=== PATIENT | female | born 1950 | race Caucasian/White ===

== ENCOUNTER → 2020-03-09 12:36 | Outpatient (CLI) | payer MEDICARE, OTHER, SELFPAY ==
--- NOTE | 2020-03-09 | DI.MRI.S_ITS ---
PROCEDURE: MR LUMBAR SPINE WO CON INDICATIONS: Low back pain Pain in left knee TECHNIQUE: Noncontrast sagittal T1 spin echo and T2 fast echo, sagittal STIR, axial T1 and T2 fast spin echo through the lumbar spine. In cases with scoliosis, additional coronal T2 fast spin echo may be performed. COMPARISON: None. FINDINGS: Image quality: Excellent. Alignment and Curvature: No plain films are available for comparison, for numbering purposes. Thus, for the purposes of this examination, 5 lumbar type vertebral bodies will be presumed, as denoted on the montage panel. This should be confirmed and correlated with plain films, prior to any lumbar spinal intervention. Mild grade 1 retrolisthesis of L3 on L4. Mild grade 1 anterolisthesis of L4 on L5. Bone Marrow: Marrow is of normal overall signal. No acute vertebral body compression fractures. Mild reactive signal within the endplates adjacent to the T10-T11, T11-T12, L2-L3, L3-L4, and L4-L5 intervertebral discs. Spinal Cord: Conus medullaris terminates at the L1-L2 disc space level. Visualized cord demonstrates normal signal and size. Paraspinous Soft Tissues: No paravertebral masses. L1-L2: Mild disc height loss and desiccation. Mild diffuse disc bulge. Mild bilateral facet and ligamentum flavum hypertrophy. Mild epidural lipomatosis. Mild canal stenosis. Mild bilateral foraminal stenosis. L2-L3: Mild disc height loss and desiccation. Mild diffuse disc bulge. Mild bilateral facet and ligamentum flavum hypertrophy. Mild epidural lipomatosis. Mild canal stenosis. Mild bilateral foraminal stenosis. L3-L4: Mild disc height loss and desiccation. Mild diffuse disc bulge. Mild bilateral facet and ligamentum flavum hypertrophy. Mild epidural lipomatosis. Mild canal stenosis. Mild bilateral foraminal stenosis. L4-L5: Moderate disc height loss and desiccation. Mild diffuse disc bulge. Mild bilateral facet and ligamentum flavum hypertrophy. Mild epidural lipomatosis. Moderate canal stenosis. Mild bilateral foraminal stenosis. L5-S1: Normal appearance. IMPRESSION: 1. Multilevel degenerative disc and facet disease, as well as ligamentum flavum hypertrophy and epidural lipomatosis. 2. Multilevel canal stenosis, worst at L4-L5, where there is moderate canal stenosis. 3. Mild multilevel foraminal stenosis. 4. 5 lumbar type vertebral bodies were presumed for the current report. Plain films of the lumbar spine are recommended for confirmation, prior to any lumbar spinal intervention. Dictated by: Nelida Montilla M.D. on 03/09/2020 at 14:18 Approved by: Nelida Montilla M.D. on 03/09/2020 at 14:20
--- NOTE | 2020-03-09 | DI.MRI.S_ITS ---
PROCEDURE: MR KNEE LT WO CON INDICATIONS: Low back pain Pain in left knee TECHNIQUE: Noncontrast sagittal PD fast spin echo and T2 fast spin echo with fat saturation, sagittal 3-D FLASH with fat saturation; coronal T1 spin echo and PD fast spin echo with fat saturation, and axial PD fast spin echo with fat saturation through the knee. COMPARISON: None. FINDINGS: Image quality: Excellent. Menisci: Linear oblique high T2 signal intensity traverses the medial meniscal body and posterior horn, demonstrating inferior articular surface extension. Medial extrusion of the medial meniscus. Radial tearing of the posterior horn medial meniscus at the meniscal root ligament insertion site. Amorphous high signal intensity within the anterior horn lateral meniscus is present, demonstrating superior articular surface extension. Linear oblique high T2 signal intensity traverses the lateral meniscal body, demonstrating inferior articular surface extension, indicating oblique tearing. Cruciate ligaments: The anterior and posterior cruciate ligaments appear intact. Medial structures: The medial collateral ligament appears intact. Visualized portions of the pes anserinus tendons appear normal. Small amount of medial bursal fluid. Lateral structures: The lateral collateral ligament, long and short heads of the biceps femoris tendon appear intact. The popliteus tendon appears normal. Iliotibial band appears normal. Anterior structures: The quadriceps and patellar tendons appear intact. Mild lateral patellar subluxation. No femoral trochlear dysplasia or ventral trochlear prominence. No edema in the infrapatellar fat pad. Bones and cartilage: No bone marrow contusions or fractures. Moderate ill-defined degenerative marrow edema within the weight-bearing aspects of the medial tibial plateau. Mild articular cartilage loss diffusely overlies the weight-bearing aspects of the medial and lateral compartments. Articular cartilage fibrillation overlies the lateral patellar facet. Joint space: There is a small knee joint effusion and a small Mcadams's cyst. Normal appearing synovial plicae are incidentally noted. IMPRESSION: 1. Tricompartmental osteoarthritis with associated articular cartilage loss. 2. Medial and lateral meniscal tearing as described above. 3. Knee joint effusion and Mcadams's cyst. 4. Medial bursitis. Dictated by: Nelida Montilla M.D. on 03/09/2020 at 14:13 Approved by: Nelida Montilla M.D. on 03/09/2020 at 14:15
== END ==
PROVIDERS: PCP Family Medicine; Referring Provider Internal Medicine Rheumatology; Visit Provider Internal Medicine Rheumatology
DX: M25.562 Pain in left knee (principal); M54.5 Low back pain; S83.242A Other tear of medial meniscus, current injury, left knee, initial encounter; S83.282A Other tear of lateral meniscus, current injury, left knee, initial encounter; M17.12 Unilateral primary osteoarthritis, left knee; M71.22 Synovial cyst of popliteal space [Baker], left knee; M71.562 Other bursitis, not elsewhere classified, left knee; M25.462 Effusion, left knee; M51.16 Intervertebral disc disorders with radiculopathy, lumbar region; M51.17 Intervertebral disc disorders with radiculopathy, lumbosacral region; M48.061 Spinal stenosis, lumbar region without neurogenic claudication; M48.07 Spinal stenosis, lumbosacral region
CPT/HCPCS: 72148; 73721

== ENCOUNTER → 2020-07-28 13:38 | Outpatient (CLI) | payer MEDICARE, OTHER, SELFPAY ==
--- NOTE | 2020-07-28 13:42 | DI.MG.S_ITS ---
BILATERAL DIGITAL SCREENING MAMMOGRAM 3D/2D WITH CAD: 07/28/2020 CLINICAL: Routine screening. Comparison is made to exams dated: 09/14/2017 mammogram and 10/14/2018 mammogram - [facility]. There are scattered fibroglandular elements in both breasts. Current study was also evaluated with a Computer Aided Detection (CAD) system. No significant masses, calcifications, or other findings are seen in either breast. There has been no significant interval change. IMPRESSION: NEGATIVE There is no mammographic evidence of malignancy. A 1 year screening mammogram is recommended. This exam was interpreted at Station ID: [id number]. NOTE: For mammograms, a report in lay terms will be sent to the patient. Approximately 15% of breast malignancies will not be visualized mammographically. In the management of a palpable breast mass, a negative mammogram must not discourage biopsy of a clinically suspicious lesion. Electronically Signed By: Baljit shah/zoraida:07/30/2020 08:44:40 letter sent: Normal Exam ACR BI-RADS Category 1: Negative 3341F
== END ==
PROVIDERS: PCP Family Medicine; Referring Provider Family Medicine; Visit Provider Family Medicine
DX: Z12.31 Encounter for screening mammogram for malignant neoplasm of breast (principal)
CPT/HCPCS: 77063; 77067

== ENCOUNTER → 2021-08-16 11:05 | Outpatient (CLI) | payer MEDICARE, OTHER, SELFPAY ==
--- NOTE | 2021-08-16 | DI.MG.S_ITS ---
BILATERAL DIGITAL SCREENING MAMMOGRAM 3D/2D WITH CAD: 08/16/2021 CLINICAL: Routine screening. Family history of breast cancer. Comparison is made to exams dated: 07/28/2020 mammogram - [facility], 10/14/2018 mammogram, and 09/14/2017 mammogram - [facility]. There are scattered fibroglandular elements in both breasts. Current study was also evaluated with a Computer Aided Detection (CAD) system. No significant masses, calcifications, or other findings are seen in either breast. There has been no significant interval change. IMPRESSION: NEGATIVE There is no mammographic evidence of malignancy. A 1 year screening mammogram is recommended. This exam was interpreted at Station ID: [id number]. NOTE: For mammograms, a report in lay terms will be sent to the patient. Approximately 15% of breast malignancies will not be visualized mammographically. In the management of a palpable breast mass, a negative mammogram must not discourage biopsy of a clinically suspicious lesion. Electronically Signed By: Abhishek lang/zoraida:08/16/2021 11:41:31 letter sent: Normal Exam ACR BI-RADS Category 1: Negative 3341F
== END ==
PROVIDERS: PCP Family Medicine; Referring Provider Family Medicine; Visit Provider Family Medicine
DX: Z12.31 Encounter for screening mammogram for malignant neoplasm of breast (principal); Z80.3 Family history of malignant neoplasm of breast
CPT/HCPCS: 77063; 77067

== ENCOUNTER → 2021-11-18 10:18 | Outpatient (CLI) | payer MEDICARE, OTHER, SELFPAY ==
[2021-11-18 13:10] LABS: COVID19 -Nasal RAPID Negative (Negative)
== END ==
PROVIDERS: PCP Family Medicine; Visit Provider Family Medicine Sleep Medicine
DX: Z20.822 Contact with and (suspected) exposure to COVID-19 (principal)
CPT/HCPCS: 87635; C9803

== ENCOUNTER 2021-11-20 08:26 | Day surgery (SDC) | payer MEDICARE, OTHER, SELFPAY ==
[2021-11-20] VITALS (7 sets, daily range): BP systolic 91–126; BP diastolic 57–79; PULSE 80–100; RESP 10–17; TEMP 36.6–36.8; O2SAT 95–100; BMI 35.9
--- NOTE | 2021-11-20 | PATH_ITS ---
[facility] Accession Number: [id number] . 01 Material submitted: . sigmoid colon - SIGMOID POLYP . 02 Diagnosis: Sigmoid Colon, Polyp, Biopsy: Tubular adenoma. MRV 11/25/2021 1249 Local . 02 Electronically signed: . Emma Aguiar MD, Pathologist NPI- [id number] . 01 Gross description: . SIGMOID POLYP: Received in formalin is 1 fragment(s) of pettit, soft tissue measuring 0.4 x 0.3 x 0.3 cm submitted entirely in 1 cassette(s) /QBJ 11/22/2021 0418 Local . 02 Pathologist provided ICD-10: D12.5 . 02 CPT . 906855 Specimen Comment: A courtesy copy of this report has been sent to [phone] Performed at: 01 [facility] [address] [id number] MD Abhishek Chow MD Phone: [phone] Performed at: 02 [facility] [address] [place], [place] [id number] MD Emma Aguiar MD Phone: [phone]
--- NOTE | 2021-11-20 09:21 | PM.HP.1 ---
History of Present Illness History of Present Illness Date Patient Seen: 11/20/21 Chief complaint: DX COLONOSCOPY Narrative: Personal history of colon polyps with last colonoscopy a bit over 5 years ago. Family history of colon polyps as well. Asymptomatic Meds Home Medications and Allergies Home Medications Medication Instructions Recorded Confirmed Type levothyroxine 137 mcg tablet 137 mcg PO DAILY 11/20/21 11/20/21 History (Synthroid) lisinopril 5 mg tablet 5 mg PO DAILY 11/20/21 11/20/21 History methotrexate sodium 2.5 mg tablet 2.5 mg PO DAILY 11/20/21 11/20/21 History triamterene 37.5 See Rx Instructions .ROUTE .COMPLEX 11/20/21 11/20/21 History mg-hydrochlorothiazide 25 mg tablet Allergies Allergy/AdvReac Type Severity Reaction Status Date / Time hydrocodone [From Vicodin] Allergy Intermediate Hives Verified 11/20/21 08:57 latex Allergy Hives Verified 11/20/21 08:58 sulfamethoxazole Allergy Hives Verified 11/20/21 08:58 [From Bactrim] trimethoprim [From Bactrim] Allergy Hives Verified 11/20/21 08:58 Exam Narrative Exam Narrative: Oropharynx free of lesions Chest clear to auscultation percussion Cardiac exam reveals no S3 or murmur Assessment & Plan Assessment & Plan narrative: Personal and family history of colon polyps need for follow-up colonoscopy. Risks, benefits, alternatives have been explained. Time Spent With Patient Critical Care time: I spent a total of [] minutes of critical care time on this patient's care today; this time is exclusive of procedural time.
--- NOTE | 2021-11-20 09:23 | PM.OP.COLON ---
Operative Date/Time/Diagnoses Date of procedure: 11/20/21 Pre-op diagnosis: See indication and findings Procedure & Clinicians Study performed: After informed consent was obtained the patient was placed in left lateral decubitus position. The video colonoscope was introduced the rectum slowly advanced cecum. On slow withdrawal mucosa was carefully examined. The scope was removed. The patient tolerated procedure well. Blood loss none Complications none Sedation mac Findings 1. 4 mm polyp in the distal sigmoid. Jumbo biopsy removed completely 2. Scattered diverticulosis through the sigmoid colon 3. Otherwise negative colonoscopy to cecum Kelly be informed of the biopsy results. She should have follow-up colonoscopy in 5 years due to family history.
[2021-11-20] MEDS: LACTATED RINGERS 1,000 ML 42 ML IV (09:33)
== END 2021-11-20 10:28 | disposition home or self-care (01) ==
PROVIDERS: PCP Family Medicine; Referring Provider Internal Medicine Gastroenterology; Visit Provider Internal Medicine Gastroenterology
PROC: 0DJD8ZZ Inspection of Lower Intestinal Tract, Via Natural or Artificial Opening Endoscopic (ICD-10-PCS; CPT 45378; principal; 2021-11-20 09:30)
DX: Z12.11 Encounter for screening for malignant neoplasm of colon (principal); Z83.71 Family history of colonic polyps; Z86.010 Personal history of colon polyps; K57.30 Diverticulosis of large intestine without perforation or abscess without bleeding
CPT/HCPCS: 45380; J2704

== ENCOUNTER → 2022-04-21 10:12 | Outpatient (CLI) | payer MEDICARE, OTHER, SELFPAY | PROVIDERS: PCP Family Medicine; Referring Provider Family Medicine; Visit Provider Family Medicine | DX: Z13.820 Encounter for screening for osteoporosis (principal); M85.852 Other specified disorders of bone density and structure, left thigh; Z78.0 Asymptomatic menopausal state; K58.9 Irritable bowel syndrome, unspecified; Z79.890 Hormone replacement therapy | CPT/HCPCS: 77080 ==

== ENCOUNTER → 2022-09-04 10:52 | Outpatient (CLI) | payer MEDICARE, OTHER, SELFPAY ==
--- NOTE | 2022-09-04 | DI.MG.S_ITS ---
BILATERAL DIGITAL SCREENING MAMMOGRAM 3D/2D WITH CAD: 09/04/2022 CLINICAL: Routine screening. Family history of breast cancer. Comparison is made to exams dated: 08/16/2021 mammogram, 07/28/2020 mammogram - [facility], and 10/14/2018 mammogram - [facility]. There are scattered areas of fibroglandular density in both breasts (category b / 25%-50% glandular tissue). Current study was also evaluated with a Computer Aided Detection (CAD) system. No significant masses, calcifications, or other findings are seen in either breast. There has been no significant interval change. IMPRESSION: NEGATIVE There is no mammographic evidence of malignancy. A 1 year screening mammogram is recommended. Based on the Tyrer Cuzick model (a risk assessment model) the patient's lifetime risk is 12.0% and her 10 year risk is 7.7%. According to the ACR, ACS, and NCCN guidelines, an annual breast MRI exam along with mammogram is recommended if the patient's lifetime risk is 20% or greater. This exam was interpreted at Station ID: [id number]. NOTE: For mammograms, a report in lay terms will be sent to the patient. Approximately 15% of breast malignancies will not be visualized mammographically. In the management of a palpable breast mass, a negative mammogram must not discourage biopsy of a clinically suspicious lesion. Electronically Signed By: Adi Hyman M.D., jr/zoraida:09/04/2022 11:14:52 letter sent: Normal Exam ACR BI-RADS Category 1: Negative 3341F
== END ==
PROVIDERS: PCP Family Medicine; Referring Provider Family Medicine; Visit Provider Family Medicine
DX: Z12.31 Encounter for screening mammogram for malignant neoplasm of breast (principal); Z80.3 Family history of malignant neoplasm of breast
CPT/HCPCS: 77063; 77067

== ENCOUNTER → 2023-09-08 12:43 | Outpatient (CLI) | payer MEDICARE, OTHER, SELFPAY ==
--- NOTE | 2023-09-08 12:44 | DI.MG.S_ITS ---
BILATERAL DIGITAL SCREENING MAMMOGRAM 3D/2D WITH CAD: 09/08/2023 CLINICAL: Routine screening. Family history of breast cancer. Comparison is made to exams dated: 09/04/2022 mammogram, 08/16/2021 mammogram, and 07/28/2020 mammogram - [facility]. There are scattered areas of fibroglandular density in both breasts (category b / 25%-50% glandular tissue). Current study was also evaluated with a Computer Aided Detection (CAD) system. No significant masses, calcifications, or other findings are seen in either breast. There has been no significant interval change. IMPRESSION: NEGATIVE There is no mammographic evidence of malignancy. A 1 year screening mammogram is recommended. Based on the Tyrer Cuzick model (a risk assessment model) the patient's lifetime risk is 11.4% and her 10 year risk is 7.8%. According to the ACR, ACS, and NCCN guidelines, an annual breast MRI exam along with mammogram is recommended if the patient's lifetime risk is 20% or greater. This exam was interpreted at Station ID: [id number]. NOTE: For mammograms, a report in lay terms will be sent to the patient. Approximately 15% of breast malignancies will not be visualized mammographically. In the management of a palpable breast mass, a negative mammogram must not discourage biopsy of a clinically suspicious lesion. Electronically Signed By: Gilmer fox/zoraida:09/08/2023 13:25:55 letter sent: Normal Exam ACR BI-RADS Category 1: Negative 3341F
== END ==
PROVIDERS: Referring Provider Family Medicine; Visit Provider Family Medicine
DX: Z12.31 Encounter for screening mammogram for malignant neoplasm of breast (principal); Z80.3 Family history of malignant neoplasm of breast; R92.323 Mammographic fibroglandular density, bilateral breasts
CPT/HCPCS: 77063; 77067

== ENCOUNTER → 2024-04-29 10:01 | Outpatient (CLI) | payer MEDICARE, OTHER, SELFPAY ==
--- NOTE | 2024-04-29 10:03 | DI.RAD.S_ITS ---
PROCEDURE: XR DEXA AXIAL SKELETON INDICATIONS: SCREENING FOR OSTEOPOROSIS COMPARISON: [facility], TELLO, XR DEXA AXIAL SKELETON, 04/21/2022, 10:28. FINDINGS: Lumbar Spine: Bone mineral density 1.015 g/cm2, T score -0.3. Prior DEXA was performed using dissimilar scan type or analysis method. Left Hip: Bone mineral density 0.765 g/cm2, T score -1.4. Prior DEXA was performed using dissimilar scan type or analysis method. Left Femoral Neck: Bone mineral density 0.585 g/cm2, T score -2.4. Right Hip: Bone mineral density is 0.681 g/cm2, T score -2.1. Prior DEXA was performed using dissimilar scan type or analysis method. Right Femoral Neck: Bone mineral density 0.554 g/cm2, T score -2.7. Fracture Risk Calculation (when applicable): FRAX score not reported due to T-score less than -2.5. (T score greater or equal to -1.0 to: NORMAL) (T score from -1.1 to -2.4: OSTEOPENIA) (T score less than or equal to -2.5: OSTEOPOROSIS) IMPRESSION: By WHO criteria, patient has osteoporosis. Follow-up guidelines as follows: Osteoporosis: Consider a repeat DEXA and Vertebral Fracture Assessment (VFA) exam in 2 years or sooner if medically necessary, to reassess this patient's status. Osteopenia: Consider a repeat DEXA in 2-3 years to reassess this patient's status, or if there is a new clinical indication. Normal: Consider a repeat DEXA in 5 years or sooner, or if there is a new clinical indication. All treatment decisions require clinical judgment and consideration of individual patient factors, including patient preferences, comorbidities, previous drug use, risk factors not captured in the FRAX model (e.g., frailty, falls, vitamin D deficiency, increased bone turnover, interval significant decline in bone density ) and possible under- or over-estimation of fracture risk by FRAX. In addition, the NOF Guide recommends that FDA-approved medical therapies be considered in postmenopausal women and men age >= 50 years with a: * Hip or vertebral (clinical or morphometric) fracture * T-score of <=-2.5 at the spine or hip * Ten-year fracture probability by FRAX of >= 3% for hip fracture or >=20% for major osteoporotic fracture. People with diagnosed cases of osteoporosis or at high risk for fracture should have regular bone mineral density tests. For patients eligible for Medicare, routine testing is allowed once every 2 years. The testing frequency can be increased to one year for patients who have rapidly progressing disease, those who are receiving or discontinuing medical therapy to restore bone mass, or have additional risk factors. Approved by: Gilmer Crawford M.D. on 04/29/2024 at 14:14
== END ==
PROVIDERS: Referring Provider Nurse Practitioner Family; Visit Provider Nurse Practitioner Family
DX: Z78.0 Asymptomatic menopausal state (principal); M81.0 Age-related osteoporosis without current pathological fracture
CPT/HCPCS: 77080

== ENCOUNTER → 2024-09-20 08:23 | Outpatient (CLI) | payer MEDICARE, OTHER, SELFPAY ==
--- NOTE | 2024-09-20 08:24 | DI.MG.S_ITS ---
MM screening mammo BI: 09/20/2024. BI-RADS: 1 CLINICAL: 73-year old female for bilateral screening mammogram. Tyrer-Cuzick lifetime risk of 8.2%. Current reported family history of breast cancer: mother. History of ovarian cancer in one first-degree relative. PRIOR EXAMS 09/08/2023, 09/04/2022, 08/16/2021, 07/28/2020. MAMMOGRAPHY TECHNIQUE: 2D and 3D (tomosynthesis) digital mammographic views obtained, with additional images as needed for full coverage. Current study was also evaluated with a Computer Aided Detection (CAD) system. DENSITY B. There are scattered areas of fibroglandular density. MAMMOGRAPHY FINDINGS Bilateral: No suspicious mass, asymmetry, microcalcification, or other abnormality seen. IMPRESSION: * No evidence of malignancy. RECOMMENDATIONS Bilateral * Annual screening mammography. OVERALL ASSESSMENT CATEGORY BI-RADS-1: Negative. The [employer] recommends annual screening mammography beginning at age 40 for women with average risk of breast cancer. ELECTRONICALLY SIGNED: Casie Kapoor M.D. on 09/21/2024 at 11:34:09 PM PT Interpreting Station ID: [id number]
== END ==
DX: Z12.31 Encounter for screening mammogram for malignant neoplasm of breast (principal); Z80.3 Family history of malignant neoplasm of breast; Z80.41 Family history of malignant neoplasm of ovary
CPT/HCPCS: 77063; 77067

== ENCOUNTER → 2024-11-22 12:11 | Outpatient (CLI) | payer MEDICARE, OTHER, SELFPAY ==
--- NOTE | 2024-11-22 12:14 | DI.MRI.S_ITS ---
PROCEDURE: MR OPTIC NRV WWO CON INDICATIONS: GRAVES DISEASE, EXOPHTHALMOS TECHNIQUE: Noncontrast sagittal T1 spin echo, axial FLAIR, axial gradient echo, axial diffusion and ADC acquired through the brain. Coronal STIR, thin-slice axial T1 spin echo through the orbits. After the administration of contrast, thin-slice axial and coronal T1 spin echo with fat saturation through the orbits, axial and coronal and sagittal T1 spin echo with fat saturation through the brain. COMPARISON: [facility], CT, CT ORBIT BI W CON, 11/22/2024, 14:29. FINDINGS: Image quality: Diagnostic, with note made of motion artifact. Orbits: Mild bilateral exophthalmos can be seen. Scrutiny is given to the extraocular muscles. There is no definite abnormal prominence of the extra-ocular muscles. They appear symmetric. Globes are symmetrical. The optic nerves are normal in size, without abnormal signal or enhancement. No retrobulbar masses or fat abnormalities. Lacrimal glands are normal. Optic chiasm is normal. Periorbital soft tissues appear normal. CSF spaces: Ventricles are normal in size and shape. Basal cisterns are patent. No extra-axial fluid collections. Brain: No intracranial bleeds or mass effects. No abnormal intracranial enhancement. Obrien-white matter interface is intact. Diffusion weighted images demonstrate no acute ischemic insults. Pituitary gland appears normal, without sellar or suprasellar masses. Brainstem appears normal. Normal intravascular flow voids are present. Skull and face: Calvarial marrow is normal in signal. Sinuses: Sinuses and mastoids are clear. IMPRESSION: Mild bilateral exophthalmos. The extraocular muscles are within normal limits. No orbital masses or abnormal enhancement can be seen. Dictated by: Duane Rao M.D. on 11/22/2024 at 15:57 Approved by: Duane Rao M.D. on 11/22/2024 at 15:59
[2024-11-22 13:53] LABS: Estimated Glomerular Filt Rate 44 mL/min (>60)
--- NOTE | 2024-11-22 14:25 | DI.CT.S_ITS ---
PROCEDURE: CT ORBIT BI W CON INDICATIONS: GRAVES DISEASE, EXOPHTHALMOS TECHNIQUE: After the administration of intravenous contrast, 2.5 mm axial images acquired through the orbits, with coronal and sagittal reformats. For radiation dose reduction, the following was used: automated exposure control, adjustment of mA and/or kV according to patient size. COMPARISON: [facility], MR, MR OPTIC NRV WWO CON, 11/22/2024, 12:44. FINDINGS: Image quality: Excellent. Orbits: Mild exophthalmos can be seen. The extraocular muscles demonstrate a symmetric appearance and appear within normal limits. Globes are symmetrical. The optic nerves are normal in size and enhancement. No retrobulbar masses or fat abnormalities. Lacrimal glands are normal. Optic chiasm is normal. Periorbital soft tissues are normal. Intracranial: The pituitary gland is normal, without sellar or suprasellar masses. Visualized cerebral hemispheres, brainstem, and spinal cord appear normal. Bones and sinuses: Visualized calvarium and facial bones appear intact. Visualized sinuses and mastoids are clear. IMPRESSION: Mild exophthalmos is seen on both sides. The extraocular muscles demonstrate no abnormal enlargement. Dictated by: Duane Rao M.D. on 11/22/2024 at 16:00 Approved by: Duane Rao M.D. on 11/22/2024 at 16:01
== END ==
PROVIDERS: Referring Provider Optometrist; Visit Provider Optometrist
DX: H05.243 Constant exophthalmos, bilateral (principal); E03.9 Hypothyroidism, unspecified
CPT/HCPCS: 70481; 70543; 70553; 82565; A9579; Q9967